=== PATIENT | female | born 1980 | race African-American/Black ===

== ENCOUNTER 2017-06-27 15:14 | Inpatient (IN) ==
[2017-06-27] MEDS ORDERED: ONDANSETRON 4 MG/2 ML VIAL IV PRN (15:38)
[2017-06-27] MEDS ORDERED: BUTORPHANOL 2 MG/ML VIAL IV PRN (15:38)
[2017-06-27] MEDS ORDERED: MEPERIDINE 50 MG/1 ML VIAL IV PRN (15:38)
[2017-06-27] MEDS ORDERED: BUTORPHANOL 1 MG/ML VIAL IV PRN (15:40)
[2017-06-27] MEDS ORDERED: DINOPROSTONE VAG GEL 10 MG SYRINGE VAG ONE (15:42)
[2017-06-27] MEDS: LACTATED RINGERS 1,000 ML IV SCH ×3 (15:50→22:39)
[2017-06-27 16:19] LABS: Basophils % 0.2 % (0.0-0.8); Eosinophils # 0.1 10*3/uL (0.0-0.87); Eosinophils % 0.6 % (0.00-10.9); Hematocrit 37.3 VOL% (35.7-47.0); Hemoglobin 12.4 GM/DL (12.0-16.0); Immature Granulocytes % 0.8 %; Immature Granulocytes Absolute 0.07 #; Lymphocytes # 1.8 10*3/uL (1.4-4.0); Lymphocytes % 21.3 % (21.3-54.2); Mean Corpuscular HGB Conc 33.2 GM/DL (32-36); Mean Corpuscular Hemoglobin 28 PG (27-34); Mean Corpuscular Volume 85.4 FL (87-102); Mean Platelet Volume 11.3 FL (9.6-12.0); Monocytes # 0.9 10*3/uL (0.11-0.8); Neutrophils # 5.7 10*3/uL (1.4-7.4); Neutrophils % 67.1 % (38.7-73.9); Platelet Count 332 T/CUMM (130-400); Red Blood Count 4.37 MC/CUMM (3.8-5.5); Red Cell Distribution Width 13.2 % (9.3-17.3); White Blood Count 8.5 T/CUMM (4-12)
[2017-06-27 16:36] LABS: Alanine Aminotransferase 16 U/L (13-56); Albumin 2.2 G/DL (3.4-5.0); Alkaline Phosphatase 71 U/L (45-117); Aspartate Amino Transferase 11 U/L (0-37); Bilirubin,Total < 0.39 MG/DL (0.2-1.0); Blood Urea Nitrogen 10 MG/DL (7-18); Glucose 128 MG/DL (74-106); Osmolality,Calculated 275.7 MOS/KG (273-304); Potassium 3.8 MMOL/L (3.5-5.1); Sodium 138 MMOL/L (136-145); Total Protein 6.8 G/DL (6.4-8.3); Uric Acid 3.7 MG/DL (2.6-6.0)
[2017-06-27] MEDS ORDERED: diphenhydrAMINE 50 MG/1 ML VIAL IV PRN ×2 (17:33)
[2017-06-27] MEDS ORDERED: FAMOTIDINE 20 MG/2 ML VIAL IV ONE (17:33)
[2017-06-27] MEDS ORDERED: PROMETHAZINE 25 MG/1 ML VIAL IM ONE (17:33)
[2017-06-27] MEDS ORDERED: hydrOXYzine HCL 25 MG/1 ML VIAL IM PRN (17:33)
[2017-06-27] MEDS ORDERED: ePHEDrine 50 MG/ML AMP IV PRN (17:33)
[2017-06-27] MEDS ORDERED: LACTATED RINGERS 1,000 ML IV ONE (17:33)
[2017-06-27] MEDS ORDERED: CITRIC ACID/SODIUM CITRATE 30 ML UDCUP PO ONE (17:33)
[2017-06-27] MEDS: fentaNYL 2 MCG/ROPIV 0.2% EPID 150 ML EPIDURAL SCH (18:09)
[2017-06-27 19:45] LABS: Apearance,Urine CLEAR (Clear); Bilirubin,Urine Negative (Negative); Blood, Urine Negative (Negative); Glucose,Urine (UA) >=500 mg/dL (Negative); Ketones,Urine Negative (Negative); Mucus,Urine Occasional /LPF (Occasional); Nitrite,Urine Negative (Negative); Protein,Urine 30 MG/DL; RBC,Urine 1 /HPF (0-4); Squamous Epithelial Cell,Urine Occasional /HPF (0-10); Urine Color Yellow (Yellow); Urine Specific Gravity 1.013 (1.001-1.035); Urine Urobilinogen < 2.0 EU/DL (0.2-1.0)
[2017-06-27] MEDS: LABETALOL 100 MG TABLET PO SCH (21:01)
[2017-06-27] MEDS: AMPICILLIN INJ 2,000 MG in SODIUM CHLORIDE 0.9% 100 ML IV SCH (22:12)
[2017-06-28] MEDS ORDERED: OXYTOCIN/LR 20 UNIT/1,000 ML BAG IV SCH (03:00)
[2017-06-28] MEDS: AMPICILLIN INJ 2,000 MG in SODIUM CHLORIDE 0.9% 100 ML IV SCH ×3 (03:43→15:36)
[2017-06-28] MEDS: fentaNYL 2 MCG/ROPIV 0.2% EPID 150 ML EPIDURAL SCH ×2 (03:45→12:50)
[2017-06-28] MEDS: LACTATED RINGERS 1,000 ML IV SCH ×2 (05:53→17:33)
[2017-06-28] MEDS ORDERED: TERBUTALINE 1 MG/1 ML VIAL SUBCUT ONE ×2 (06:38→06:39)
[2017-06-28] MEDS ORDERED: CITRIC ACID/SODIUM CITRATE 30 ML UDCUP ONE (06:45)
[2017-06-28] MEDS ORDERED: ceFAZolin 2,000 MG in PREMIX 1 EACH IV ONE (06:46)
[2017-06-28] MEDS ORDERED: METHYLERGONOVINE 0.2 MG/1 ML AMP ONE (06:46)
[2017-06-28] MEDS ORDERED: OXYTOCIN/LR 30 UNIT/1,000 ML BAG IV ONE (06:46)
[2017-06-28] MEDS ORDERED: OXYTOCIN 10 UNIT/ML VIAL ONE (06:47)
[2017-06-28 07:40] LABS: Cord Venous Blood HCO3 18.1 MMOL/L; Cord Venous Blood PCO2 62.3 MMHG; Cord Venous Blood PO2 18.3
[2017-06-28] MEDS ORDERED: SODIUM CHLORIDE 0.9% 1,000 ML IV PRN (07:47)
[2017-06-28] MEDS ORDERED: ONDANSETRON 4 MG/2 ML VIAL ONE (08:50)
[2017-06-28] MEDS ORDERED: NALOXONE 0.4 MG/ML VIAL IV PRN (09:20)
[2017-06-28] MEDS ORDERED: HYDROmorphone PCA 30 MG/30 ML SYRINGE IV SCH (09:30)
[2017-06-28] MEDS: LABETALOL 100 MG TABLET PO SCH ×2 (12:55→21:10)
[2017-06-28 13:55] LABS: Basophils % 0.2 % (0.0-0.8); Hematocrit 35.4 VOL% (35.7-47.0); Hemoglobin 11.7 GM/DL (12.0-16.0); Immature Granulocytes % 0.9 %; Immature Granulocytes Absolute 0.22 #; Lymphocytes # 1.4 10*3/uL (1.4-4.0); Lymphocytes % 5.4 % (21.3-54.2); Mean Corpuscular HGB Conc 33.1 GM/DL (32-36); Mean Corpuscular Hemoglobin 29 PG (27-34); Mean Corpuscular Volume 87.6 FL (87-102); Monocytes % 7.8 % (1.7-12.7); Neutrophils # 21.3 10*3/uL (1.4-7.4); Neutrophils % 85.7 % (38.7-73.9); Platelet Count 276 T/CUMM (130-400); Red Blood Count 4.04 MC/CUMM (3.8-5.5); Red Cell Distribution Width 13.2 % (9.3-17.3); White Blood Count 24.9 T/CUMM (4-12)
[2017-06-28 14:30] LABS: Band Neutrophils 1 % (0-10); Lymphocytes 7 % (20-55); Platelet Estimate Normal; Polychromasia Few; Segmented Neutrophils 91 % (50-85); Total Cells Counted 100
[2017-06-28] MEDS ORDERED: ceFAZolin 1,000 MG in SYRINGE 1 EACH IV SCH (15:30)
[2017-06-28] MEDS ORDERED: KETOROLAC 30 MG/1 ML VIAL IV PRN (20:47)
[2017-06-28] MEDS: DOCUSATE SODIUM 100 MG CAPSULE PO SCH (21:10)
[2017-06-28] MEDS: PANTOPRAZOLE 40 MG TABLET PO SCH (21:10)
[2017-06-28] MEDS: SIMETHICONE CHEW 80 MG TABLET PO PRN (21:11)
[2017-06-28] MEDS: ceFAZolin 1,000 MG in SYRINGE 1 EACH IV SCH (22:53)
[2017-06-29 05:03] LABS: Basophils % 0.2 % (0.0-0.8); Eosinophils # 0.1 10*3/uL (0.0-0.87); Eosinophils % 0.6 % (0.00-10.9); Hematocrit 27.8 VOL% (35.7-47.0); Hemoglobin 9.4 GM/DL (12.0-16.0); Immature Granulocytes % 0.7 %; Immature Granulocytes Absolute 0.13 #; Lymphocytes # 2.1 10*3/uL (1.4-4.0); Lymphocytes % 11.5 % (21.3-54.2); Mean Corpuscular HGB Conc 33.8 GM/DL (32-36); Mean Corpuscular Hemoglobin 29 PG (27-34); Mean Corpuscular Volume 86.1 FL (87-102); Mean Platelet Volume 10.9 FL (9.6-12.0); Monocytes # 1.7 10*3/uL (0.11-0.8); Monocytes % 9.3 % (1.7-12.7); Neutrophils # 14.1 10*3/uL (1.4-7.4); Neutrophils % 77.7 % (38.7-73.9); Platelet Count 239 T/CUMM (130-400); Red Blood Count 3.23 MC/CUMM (3.8-5.5); Red Cell Distribution Width 13.3 % (9.3-17.3); White Blood Count 18.1 T/CUMM (4-12)
[2017-06-29] MEDS ORDERED: BISACODYL 10 MG SUPP RECTAL PRN (05:57)
[2017-06-29] MEDS: ceFAZolin 1,000 MG in SYRINGE 1 EACH IV SCH (06:26)
[2017-06-29] MEDS: METOCLOPRAMIDE 10 MG/2 ML VIAL IV SCH ×2 (08:55→16:57)
[2017-06-29] MEDS: PANTOPRAZOLE 40 MG TABLET PO SCH ×2 (08:56→20:41)
[2017-06-29] MEDS: FERROUS SULFATE 325 MG TABLET PO SCH ×3 (08:56→20:41)
[2017-06-29] MEDS: LABETALOL 100 MG TABLET PO SCH ×2 (08:56→20:41)
[2017-06-29] MEDS: DOCUSATE SODIUM 100 MG CAPSULE PO SCH ×2 (08:56→20:41)
[2017-06-29] MEDS: MAGNESIUM HYDROXIDE SUSP 30 ML UDCUP PO PRN ×2 (09:08→20:41)
[2017-06-29] MEDS: SIMETHICONE CHEW 80 MG TABLET PO PRN (20:41)
[2017-06-29] MEDS: IBUPROFEN 800 MG TABLET PO PRN (22:24)
[2017-06-30] MEDS: METOCLOPRAMIDE 10 MG/2 ML VIAL IV SCH (00:20)
[2017-06-30] MEDS: IBUPROFEN 800 MG TABLET PO PRN (06:50)
[2017-06-30 07:42] VITALS: BP 145/77
[2017-06-30] MEDS: DOCUSATE SODIUM 100 MG CAPSULE PO SCH (08:46)
[2017-06-30] MEDS: LABETALOL 100 MG TABLET PO SCH (08:46)
[2017-06-30] MEDS: FERROUS SULFATE 325 MG TABLET PO SCH (08:46)
[2017-06-30] MEDS: PANTOPRAZOLE 40 MG TABLET PO SCH (08:47)
[2017-06-30] MEDS ORDERED: INFLUENZA VIRUS VACCINE 0.5 ML SYRINGE IM ONE ×2 (11:21→12:00)
[2017-06-30] MEDS ORDERED: DIPH/TET/ACEL PERT BOOSTER VACCINE 0.5 ML VIAL IM ONE ×2 (11:21→12:00)
== END 2017-06-30 13:15 | disposition home or self-care (01) | DRG 766 ==
LOC: N.LDOUT 15:14 → N.LD 15:19 → N.OB 06-28 12:19
PROVIDERS: ADMIT Obstetrics & Gynecology; ATTEND Obstetrics & Gynecology
PROC: LDCSECT (ICD-10-PCS; 2017-06-28 06:45)

== ENCOUNTER 2017-07-02 23:50 | Inpatient (IN) ==
[2017-07-03 01:45] LABS: Basophils % 0.2 % (0.0-0.8); Eosinophils # 0.2 10*3/uL (0.0-0.87); Eosinophils % 1.1 % (0.00-10.9); Hematocrit 26.8 VOL% (35.7-47.0); Hemoglobin 8.7 GM/DL (12.0-16.0); Immature Granulocytes % 2.3 %; Immature Granulocytes Absolute 0.31 #; Lymphocytes # 1.2 10*3/uL (1.4-4.0); Lymphocytes % 9.3 % (21.3-54.2); Mean Corpuscular HGB Conc 32.5 GM/DL (32-36); Mean Corpuscular Hemoglobin 29 PG (27-34); Mean Platelet Volume 11.5 FL (9.6-12.0); Monocytes # 1.2 10*3/uL (0.11-0.8); Monocytes % 9.1 % (1.7-12.7); NRBC # 0.04 10*3/uL; Neutrophils # 10.3 10*3/uL (1.4-7.4); Platelet Count 283 T/CUMM (130-400); Red Blood Count 3.01 MC/CUMM (3.8-5.5); Red Cell Distribution Width 13.9 % (9.3-17.3); White Blood Count 13.2 T/CUMM (4-12)
[2017-07-03 02:05] LABS: Blood Urea Nitrogen 11 MG/DL (7-18); Calcium 8.2 MG/DL (8.5-10.1); Glucose 105 MG/DL (74-106); Osmolality,Calculated 277.4 MOS/KG (273-304); Sodium 140 MMOL/L (136-145); Troponin I Only 0.068 NG/ML (0.00-0.045)
[2017-07-03] MEDS ORDERED: FUROSEMIDE 40 MG/4 ML VIAL IV STA (02:25)
[2017-07-03] MEDS ORDERED: FUROSEMIDE 40 MG/4 ML VIAL ONE (03:11)
[2017-07-03] MEDS ORDERED: ONDANSETRON 4 MG/2 ML VIAL IV PRN (03:23)
[2017-07-03 04:34] LABS: Band Neutrophils 1 % (0-10); Eosinophils 1 % (0-10); Lymphocytes 9 % (20-55); Metamyelocytes 1 %; Myelocytes 2 %; Segmented Neutrophils 81 % (50-85); Total Cells Counted 100
[2017-07-03 04:35] LABS: Anisocytosis 1+; Hypochromasia 1+; Platelet Estimate Normal
[2017-07-03] MEDS ORDERED: FUROSEMIDE 40 MG/4 ML VIAL IV SCH (08:00)
[2017-07-03] MEDS: FUROSEMIDE 40 MG/4 ML VIAL IV SCH ×2 (09:08→14:54)
[2017-07-03] MEDS ORDERED: LORazepam 1 MG TABLET PO ONE (10:42)
[2017-07-03] MEDS ORDERED: oxyCODONE/ACETAMINOPHEN 5-325 MG TABLET PO PRN (10:50)
[2017-07-03] MEDS: ALBUTEROL 2.5 MG/3 ML NEB RESP TX SCH ×2 (13:48→17:44)
[2017-07-03 17:31] VITALS: BP 144/77
[2017-07-04] MEDS ORDERED: SERTRALINE 50 MG TABLET PO SCH (09:00)
== END 2017-07-03 19:30 | disposition home or self-care (01) | DRG 776 ==
LOC: N.ED 23:50 → N.EDINP 07-03 03:23 → N.OB 07-03 04:07
PROVIDERS: ADMIT Obstetrics & Gynecology; ATTEND Obstetrics & Gynecology